=== PATIENT | female | born 1960 | race African-American/Black ===

== ENCOUNTER 2018-03-30 17:30 | Emergency (ER) | payer OTHER ==
--- NOTE | 2018-03-30 17:35 | PDOC ---
Rapid Medical Evaluation Chief Complaint: Injury Time Seen by Provider: 03/30/18 17:32 Medical Evaluation: Allergies Allergy/AdvReac Type Severity Reaction Status Date / Time No Known Allergies Allergy Verified 05/10/16 17:24 03/30/18 17:33 I have performed a brief in-person evaluation of this patient. The patient presents with a chief complaint of:R knee pain s/p fall today, unable to bear weight since. Denies any other injuries. Ambulates w/ walker, CVA , CHF, smoker Pertinent physical exam findings:ttp to diffuse R knee, no sig swelling, pain w / ROM I have ordered the following:xray The patient will proceed to the ED for further evaluation. 03/30/18 17:35 Discharge Disposition - Diagnosis Knee injury Qualifiers: Encounter type: initial encounter Laterality: right Qualified Code(s): S89.91XA - Unspecified injury of right lower leg, initial encounter - Referrals - Patient Instructions - Post Discharge Activity
[2018-03-30 17:36] VITALS: BP 119/79; PULSE 78; TEMP 98.8; BMI 45.2
--- NOTE | 2018-03-30 18:49 | PDOC ---
History of Present Illness - General Chief Complaint: Injury Stated Complaint: FALL INJURY Time Seen by Provider: 03/30/18 17:32 History Source: Patient, Family Exam Limitations: Clinical Condition - History of Present Illness Initial Comments: 03/30/18 18:52 Patient present with complains of right knee pains s/p falling whiles using walking and missing a step. pt report she fell on right knee and painful to ambulate. pt report previous fall on same knee few days ago. Denies hitting head Timing/Duration: 4-6 hours Severity: moderate Modifying Factors: improves with: rest. worse with: movement Associated Symptoms: denies: denies symptoms, malaise Aspirin Received prior to arrival: Yes: no aspirin today Beta Shaila Contraindications(Core Measure): Yes: Not Prescribed Past History - Past Medical History Allergies/Adverse Reactions: Allergies Allergy/AdvReac Type Severity Reaction Status Date / Time No Known Allergies Allergy Verified 05/10/16 17:24 Home Medications: Ambulatory Orders Aspirin [ASA -] 81 mg PO DAILY 10/13/15 Carvedilol [Coreg] 12.5 mg PO DAILY 10/13/15 Clopidogrel Bisulfate [Plavix -] 75 mg PO DAILY 10/13/15 Gabapentin 100 mg PO BID 10/13/15 Levetiracetam [Keppra] 1,000 mg PO BID 10/13/15 Metformin HCl 850 mg PO BID 10/13/15 Rosuvastatin Calcium [Crestor] 40 mg PO DAILY 10/13/15 Topiramate [Trokendi Xr] 100 mg PO BID 10/13/15 Duloxetine HCl 30 mg PO BID 01/26/16 Furosemide [Lasix -] 20 mg PO DAILY 01/26/16 Meloxicam 7.5 mg PO DAILY PRN 01/26/16 Sennosides/Docusate Sodium [Doc-Q-Lax Tablet] 1 each PO BID 01/26/16 Asthma: Yes CVA: Yes (3 tia) COPD: Yes Diabetes: Yes HTN: Yes Seizures: Yes Other medical history: chiarie malformation - Suicide/Smoking/Psychosocial Hx Smoking History: Never smoked Have you smoked in the past 12 months: No Number of Cigarettes Smoked Daily: 10 Information on smoking cessation initiated: No Hx Alcohol Use: No Drug/Substance Use Hx: No Substance Use Type: None Review of Systems - Review of Systems Is the patient limited Swiss proficient: No Constitutional: No: Weakness HEENTM: No: Symptoms Reported, Eye Pain, Blurred Vision, Tearing, Recent change in vision, Double Vision, Cataracts, Ear Pain, Ocular Prothesis, Ear Discharge, Nose Pain, Nose Congestion, Tinnitus, Nose Bleeding, Hearing Loss, Throat Pain, Throat Swelling, Mouth Pain, Dental Problems, Difficulty Swallowing, Mouth Swelling, Other Respiratory: No: Symptoms reported, Cough, Orthopnea, Shortness of Breath, SOB with Exertion, SOB at Rest, Stridor, Wheezing, Productive cough, Hemoptysis, Other Cardiac (ROS): No: Chest Pain, Lightheadedness ABD/GI: No: Symptoms Reported : No: Symptoms Reported Musculoskeletal: Yes: Joint Pain (right knee), Joint Swelling (right knee), Muscle Pain Neurological: No: Numbness, Dizziness Hematologic/Lymphatic: No: Easy Bruising *Physical Exam - Vital Signs Last Vital Signs Temp Pulse Resp BP Pulse Ox 98.8 F 78 18 119/79 96 03/30/18 17:33 03/30/18 17:33 03/30/18 17:33 03/30/18 17:33 03/30/18 17:33 - Physical Exam General Appearance: Yes: Nourished, Appropriately Dressed. No: Apparent Distress HEENT: positive: Normal ENT Inspection Neck: positive: Trachea midline, Normal Thyroid. negative: Tender Respiratory/Chest: positive: Lungs Clear. negative: Respiratory Distress Cardiovascular: positive: Regular Rhythm Gastrointestinal/Abdominal: positive: Normal Bowel Sounds. negative: Tender Musculoskeletal: positive: Normal Inspection, Other (moderate tenderness to lateral and medial collateral ligaments of right knee. no swelling to knee. pain worse with medial and lateral deviation of right lower leg) Neurologic: positive: Fully Oriented, Normal Mood/Affect Medical Decision Making - Medical Decision Making 03/30/18 18:55 Patient with right knee pains s/p fall. no evident of knee fracture or swellling on exam x-rays of right knee with no evident of fracture or dislocation. pt stable for discharge with PCP follow-up with knee brace and jayshree bandage to knee. rx NSAIDS for pain and swelling and RICE right LE *DC/Admit/Observation/Transfer Diagnosis at time of Disposition: Knee injury Qualifiers: Encounter type: initial encounter Laterality: right Qualified Code(s): S89.91XA - Unspecified injury of right lower leg, initial encounter Knee contusion Qualifiers: Encounter type: initial encounter Laterality: right Qualified Code(s): S80.01XA - Contusion of right knee, initial encounter Left knee sprain Qualifiers: Encounter type: initial encounter Involved ligament of knee: unspecified ligament Qualified Code(s): S83.92XA - Sprain of unspecified site of left knee, initial encounter - Discharge Dispostion Disposition: HOME Condition at time of disposition: Stable Decision to Admit order: No - Referrals Referrals: Annie Jensen MD [Primary Care Provider] - - Patient Instructions Printed Discharge Instructions: Knee Sprain, How to Use an Elastic Bandage- Knee Sprain Additional Instructions: Take home meloxicam as prescribed for knee pain. elevate right knee. use heat pad as directed on knee after today. follow-up with PCP - Post Discharge Activity
[2018-03-30] MEDS ORDERED: IBUPROFEN 400 MG TABLET (FP) PO ONE ×2 (19:06→19:07)
== END 2018-03-30 19:23 | disposition home or self-care (01) ==
LOC: JERFT 17:30
DX: S83.8X1A Sprain of other specified parts of right knee, initial encounter (principal); S80.01XA Contusion of right knee, initial encounter; W18.39XA Other fall on same level, initial encounter; Y93.89 Activity, other specified; Y92.89 Other specified places as the place of occurrence of the external cause; Y99.8 Other external cause status; Z99.89 Dependence on other enabling machines and devices; I10 Essential (primary) hypertension; E11.9 Type 2 diabetes mellitus without complications; Z79.84 Long term (current) use of oral hypoglycemic drugs; G40.909 Epilepsy, unspecified, not intractable, without status epilepticus; J45.909 Unspecified asthma, uncomplicated; Z86.73 Personal history of transient ischemic attack (TIA), and cerebral infarction without residual deficits
CPT/HCPCS: 73562-TC-RT-FY; 99282-25

== ENCOUNTER 2018-10-30 03:14 | Inpatient (IN) | payer OTHER ==
[2018-10-30] MEDS ORDERED: SODIUM CHLORIDE 0.9% 1000 ML INFUS.BAG IV ONE (03:26)
--- NOTE | 2018-10-30 03:37 | PDOC ---
History of Present Illness - General Stated Complaint: SEIZURE Time Seen by Provider: 10/30/18 03:25 History Source: Patient Exam Limitations: No Limitations, Clinical Condition - History of Present Illness Initial Comments: 55 yo F w a pmh of Seizure disorder, CHF, COPD, stroke with residual left sided weakness presents to the ER BIBEMS because she was having a seizure despite taking her topiramate and keppra. EMS gave her 5 mg of versed which abated her seizure. She admits to experiencing a seizure every day for around 15 minutes for the past month. She endorses significant difficulty with speaking after she has seizures. She states her seizures were well under control up until a month ago and then she began to have at least one seizure a day. She denies chest pain and dizziness. She denies fever, chills, nausea, vomit, diarrhea and constipation. She denies dysuria, frequency, urgency and hematuria. Social history: Denies tobacco, alcohol, and recreational drug use. PCP - Dr. Farrell Allergies: NKA, PRECIOUS Past History - Past Medical History Allergies/Adverse Reactions: Allergies Allergy/AdvReac Type Severity Reaction Status Date / Time No Known Allergies Allergy Verified 05/10/16 17:24 Home Medications: Ambulatory Orders Aspirin [ASA -] 81 mg PO DAILY 10/13/15 Carvedilol [Coreg] 12.5 mg PO DAILY 10/13/15 Clopidogrel Bisulfate [Plavix -] 75 mg PO DAILY 10/13/15 Gabapentin 100 mg PO BID 10/13/15 Levetiracetam [Keppra] 1,000 mg PO BID 10/13/15 Rosuvastatin Calcium [Crestor] 40 mg PO DAILY 10/13/15 Topiramate [Trokendi Xr] 100 mg PO BID 10/13/15 metFORMIN HCL [Metformin HCl] 850 mg PO BID 10/13/15 Duloxetine HCl 30 mg PO BID 01/26/16 Furosemide [Lasix -] 20 mg PO DAILY 01/26/16 Meloxicam 7.5 mg PO DAILY PRN 01/26/16 Sennosides/Docusate Sodium [Doc-Q-Lax Tablet] 1 each PO BID 01/26/16 Asthma: Yes CVA: Yes (3 tia) COPD: Yes Diabetes: Yes HTN: Yes Seizures: Yes - Suicide/Smoking/Psychosocial Hx Smoking History: Never smoked Have you smoked in the past 12 months: No Number of Cigarettes Smoked Daily: 10 Information on smoking cessation initiated: No Hx Alcohol Use: No Drug/Substance Use Hx: No Substance Use Type: None Review of Systems - Review of Systems Able to Perform ROS?: Yes Comments:: CONSTITUTIONAL: Present: Fatigue Absent: fever, no chills EYES: Absent: visual changes ENT: Absent: ear pain, no sore throat CARDIOVASCULAR: Absent: chest pain, no palpitations RESPIRATORY: Absent: cough, no SOB GI: Absent: abdominal pain, no nausea, no vomiting, no constipation, no diarrhea GENITOURINARY: Absent: dysuria, no frequency, no hematuria MUSKULOSKELETAL: Present: Arthralgia Absent: back pain, no myalgia SKIN: Absent: rash NEURO: Present: Seizures Absent: headache *Physical Exam - Vital Signs Last Vital Signs Temp Pulse Resp BP Pulse Ox 97.4 F L 83 16 96/54 L 94 L 10/30/18 03:30 10/30/18 03:30 10/30/18 03:30 10/30/18 03:30 10/30/18 03:30 - Physical Exam Comments: GENERAL: Somnolent, lethargic. Well-appearing, well-nourished. No apparent distress. HEENT: Normocephalic, atraumatic. PERRL, EOM intact. CARDIOVASCULAR: Normal S1, S2. Regular rate and rhythm. PULMONARY: No evidence of respiratory distress. Lungs clear to auscultation bilaterally. No wheezing, rales or rhonchi. ABDOMEN: Soft, non-distended, non-tender. EXTREMITIES: Normal ROM in all four extremities. No gross deformities. SKIN: Warm, dry. No rash Neurologic: positive: yarn wrapper II-XII NML intact, Fully Oriented, Alert, Normal Mood/ Affect, Normal Response, Motor Strength 5/5, Respond to painful stimul, Responsive. negative: Facial Droop, Numbness Moderate Sedation - Procedure Monitoring Vital Signs: Procedure Monitoring Vital Signs Temperature 97.4 F L 10/30/18 03:30 Pulse Rate 83 10/30/18 03:30 Respiratory Rate 16 10/30/18 03:30 Blood Pressure 96/54 L 10/30/18 03:30 O2 Sat by Pulse Oximetry (%) 94 L 10/30/18 03:30 ED Treatment Course - LABORATORY CBC & Chemistry Diagram: 10/30/18 04:48 10/30/18 05:54 Medical Decision Making - Medical Decision Making 55 yo F w a pmh of Seizure disorder, CHF, COPD, stroke with residual left sided weakness presents to the ER BIBEMS because she was having a seizure despite taking her topiramate and keppra. EMS gave her 5 mg of versed which abated her seizure. She admits to experiencing a seizure every day for around 15 minutes for the past month. She endorses significant difficulty with speaking after she has seizures. She states her seizures were well under control up until a month ago and then she began to have at least one seizure a day. DDx IBNLT: Status epilepticus, seizure, Sepsis, CVA/TIA, encephalitis, meningitis Plan: Labs, Urine, Xr, CT, EKG, Re-assess. Patient stopped seizing after receiving midazolam. She is protecting her airway. CT shows b/l proptosis but is negative for acute pathology. Will admit patient for refractory seizures. *DC/Admit/Observation/Transfer Diagnosis at time of Disposition: Refractory tonic seizures - Discharge Dispostion Condition at time of disposition: Guarded Decision to Admit order: Yes - Referrals Referrals: Annie Jensen MD [Primary Care Provider] - - Patient Instructions - Post Discharge Activity
--- NOTE | 2018-10-30 04:20 | PDOC ---
Attending Attestation - Resident Resident Name: Umer Hernandez - ED Attending Attestation I have performed the following: I have examined & evaluated the patient, The case was reviewed & discussed with the resident, I agree w/resident's findings & plan, Exceptions are as noted - HPI HPI: 10/30/18 04:16 58 yo F with h/o chf htn seizure disorder, prior cva here today with seizures. per pt boyfriend she used to have seizures every other day, and sometimes mult a day, but then was well controlled on keppra for a few months, recently she started having frequent seizure , today she had 3 or 4. last was witness by her boyfriend who noted tonic clonic shaking for 45 sec. on ems arrival pt had another, was given versed. pt denies f/c no n/v no trauma. has been taking meds. - Physicial Exam PE: 10/30/18 04:18 awake alert but intermittently confused. lungs clear bilaterally heart rrr no mrg abd soft nt nd. ext wwp no edema. nupam speaking drowsy. - Medical Decision Making 10/30/18 04:20 differential breakthrough seizures. noncompliance. subtherapuetic levels, infection such as uti pna or flu, plan labs ekg cxr [facility]k [facility] [place] consult.
[2018-10-30 05:13] LABS: BASO % 1.3 % (0-2.0); EOS % 1.5 % (0-4.5); HEMATOCRIT 36.5 % (32.4-45.2); LYMPH % 32.7 % (8-40); MCH 31.1 pg (25.7-33.7); MCHC 32.9 g/dl (32.0-36.0); MEAN CELL VOLUME 94.7 fl (80-96); MEAN PLT VOLUME 8.8 fl (7.5-11.1); NEUT % 57.5 % (42.8-82.8); PLATELET COUNT 110 K/MM3 (134-434); RBC 3.86 M/mm3 (3.60-5.2); RDW 14.5 % (11.6-15.6); WHITE BLOOD COUNT 5.7 K/mm3 (4.0-10.0)
[2018-10-30 05:14] LABS: INR 1.01 (0.83-1.09); PROTHROMBIN TIME (PATIENT) 11.9 SEC (9.7-13.0)
[2018-10-30 06:19] LABS: ALK PHOS 70 U/L (45-117); ANION GAP 6 MMOL/L (8-16); BILIRUBIN,TOTAL 0.2 mg/dL (0.2-1); BLOOD UREA NITROGEN 12 mg/dL (7-18); CALCIUM 8.7 mg/dL (8.5-10.1); CHLORIDE 108 mmol/L (98-107); CO2 27 mmol/L (21-32); CREATININE 0.7 mg/dL (0.55-1.3); GLUCOSE,RANDOM 98 mg/dL (74-106); POTASSIUM 3.9 mmol/L (3.5-5.1); SGOT/AST 19 U/L (15-37); SGPT/ALT 24 U/L (13-61); SODIUM 141 mmol/L (136-145); TOT PROT 7.2 g/dl (6.4-8.2)
[2018-10-30] MEDS ORDERED: levETIRAcetam 500 MG/5 ML INJECTION VIAL IVPB ONE ×3 (07:04→13:56)
--- NOTE | 2018-10-30 07:29 | HP ---
CHIEF COMPLAINT: seizures PCP: Annie Jensen MD HISTORY OF PRESENT ILLNESS: Patient is a 58 year old female with a past medical history of seizure disorder , chiari malformation type 1, CHF, COPD and CVA with left sided weakness. She comes to the ED via EMS after having seizure activity at home. In route to the hospital, she was given versed 5mg which stopped her seizure activity. Patient reports two seizures at home yesterday and has had one daily that lasts as long as 15 minutes for the past month. She denies any falls or trauma, denies any recent illnesses. She states that she sleeps for a prolonged time after each seizure and has difficulty speaking. On exam, she is sleepy, but arousable, her speech is garbled and her mucous membranes are very dry. She has facial symmetry and no other neurological deficits noted at this time. She can answer questions appropriately but falls back to sleep easily. As per patient she has been having seizures almost daily for the past 2 months. She denies chest pain and dizziness. She denies fever, chills, nausea, vomit, diarrhea and constipation. She denies dysuria, frequency, urgency and hematuria. Having some right knee pain, but denies falls. ER course was notable for: (1) keppra loading dose x 1 (2) head ct negative (3) brain mri 06/06/18 reviewed, consistent with chiari malformation type 1 w/o mass Recent Travel: PAST MEDICAL HISTORY: PAST SURGICAL HISTORY: Social History: Smoking: denies Alcohol: denies Drugs: denies Family History: Allergies No Known Allergies Allergy (Verified 05/10/16 17:24) HOME MEDICATIONS: Home Medications Medication Instructions Recorded Aspirin [ASA -] 81 mg PO DAILY 10/13/15 Carvedilol [Coreg] 12.5 mg PO DAILY 10/13/15 Clopidogrel Bisulfate [Plavix -] 75 mg PO DAILY 10/13/15 Gabapentin 100 mg PO BID 10/13/15 Levetiracetam [Keppra] 1,000 mg PO BID 10/13/15 Rosuvastatin Calcium [Crestor] 40 mg PO DAILY 10/13/15 Topiramate [Trokendi Xr] 100 mg PO BID 10/13/15 metFORMIN HCL [Metformin HCl] 850 mg PO BID 10/13/15 Duloxetine HCl 30 mg PO BID 01/26/16 Furosemide [Lasix -] 20 mg PO DAILY 01/26/16 Meloxicam 7.5 mg PO DAILY PRN 01/26/16 Sennosides/Docusate Sodium 1 each PO BID 01/26/16 [Doc-Q-Lax Tablet] PHYSICAL EXAMINATION Vital Signs - 24 hr 10/30/18 10/30/18 10/30/18 03:30 04:37 06:04 Temperature 97.4 F L Pulse Rate 83 Pulse Rate [ 78 75 Apical] Respiratory 16 22 H 16 Rate Blood Pressure 96/54 L Blood Pressure 109/62 111/62 [Left Arm] O2 Sat by Pulse 94 L 98 99 Oximetry (%) GENERAL:lethargic, arousable, can answer questions appropriately, garbled speech , falls back to sleep easily HEAD: Normal with no signs of trauma. dry mucous membranes EYES: Pupils equal, round and reactive to light, extraocular movements intact EARS, NOSE, THROAT: Ears normal, nares patent, oropharynx clear without exudates. Moist mucous membranes. NECK: Normal range of motion, supple without lymphadenopathy, JVD, or masses. LUNGS: congestion noted on anterior lungs HEART: Regular rate and rhythm ABDOMEN: Soft, nontender, not distended, normoactive bowel sounds, no guarding, no rebound, no masses. No hepatomegaly or splenomegaly. MUSCULOSKELETAL: Normal range of motion at all joints. No bony deformities or tenderness. No CVA tenderness. UPPER EXTREMITIES: No peripheral edema. LOWER EXTREMITIES: No peripheral edema. NEUROLOGICAL: garbled speech, gait not obsered PSYCHIATRIC: Cooperative. SKIN: dry Laboratory Results - last 24 hr 10/30/18 10/30/18 10/30/18 04:33 04:33 04:33 WBC RBC Hgb Hct MCV MCH MCHC RDW Plt Count MPV Absolute Neuts (auto) Neutrophils % Lymphocytes % Monocytes % Eosinophils % Basophils % Nucleated RBC % PT with INR 11.90 INR 1.01 PTT (Actin FS) 23.3 L Sodium Potassium Chloride Carbon Dioxide Anion Gap BUN Creatinine Creat Clearance w eGFR Random Glucose Lactic Acid Calcium Total Bilirubin AST ALT Alkaline Phosphatase Creatine Kinase Troponin I Total Protein Albumin Blood Type O NEGATIVE Antibody Screen Negative 10/30/18 10/30/18 10/30/18 04:48 04:48 04:48 WBC 5.7 RBC 3.86 Hgb 12.0 Hct 36.5 MCV 94.7 MCH 31.1 MCHC 32.9 RDW 14.5 Plt Count 110 L D MPV 8.8 D Absolute Neuts (auto) 3.3 Neutrophils % 57.5 Lymphocytes % 32.7 Monocytes % 7.0 Eosinophils % 1.5 Basophils % 1.3 Nucleated RBC % 0 PT with INR INR PTT (Actin FS) Sodium Potassium Chloride Carbon Dioxide Anion Gap BUN Creatinine Creat Clearance w eGFR Random Glucose Lactic Acid 1.1 Calcium Total Bilirubin AST ALT Alkaline Phosphatase Creatine Kinase 88 Troponin I < 0.02 Total Protein Albumin Blood Type Antibody Screen 10/30/18 05:54 WBC RBC Hgb Hct MCV MCH MCHC RDW Plt Count MPV Absolute Neuts (auto) Neutrophils % Lymphocytes % Monocytes % Eosinophils % Basophils % Nucleated RBC % PT with INR INR PTT (Actin FS) Sodium 141 Potassium 3.9 Chloride 108 H Carbon Dioxide 27 Anion Gap 6 L BUN 12 Creatinine 0.7 Creat Clearance w eGFR > 60 Random Glucose 98 Lactic Acid Calcium 8.7 Total Bilirubin 0.2 AST 19 ALT 24 Alkaline Phosphatase 70 Creatine Kinase 89 Troponin I Total Protein 7.2 Albumin 4.0 Blood Type Antibody Screen ASSESSMENT/PLAN: Patient is a 58 year old female with a past medical history of seizure disorder , chiari malformation type 1, CHF, COPD and CVA with left sided weakness. She comes to the ED via EMS after having seizure activity at home. In route to the hospital, she was given versed 5mg which stopped her seizure activity. Patient reports two seizures at home yesterday and has had one daily that lasts as long as 15 minutes for the past month. She denies any falls or trauma, denies any recent illnesses. She states that she sleeps for a prolonged time after each seizure and has difficulty speaking. Neuro: Epilepsy Head CT negative for acute process brain mri 06/06/18 reviewed, consistent with chiari malformation type 1 w/o mass Given Keppra 1000mg loading dose. Start on Keppra 1000mg BID IV Start on ativan 1mg prn for breakthrough seizures Keppra levels ordered Drug screen ordered Seizure precautions Neuro consulted Will order brain MRI Diabetes: start novolog, bgms CHF: on lasix, will hydrate and hold lasix CVA: left sided weakness: PT evaluation Thrombocytopenia: platelets 110, monitor fen Hydrate with NS @ 50cc/hr Monitor electrolytes diabetic diet prophy heparin tid full code. Patient poor historian on her medications and was sleepy on exam, she was not clear if she takes gabapentin or lasix at home. will need to be reconciled. Visit type - Emergency Visit Emergency Visit: Yes ED Registration Date: 10/30/18 Care time: The patient presented to the Emergency Department on the above date and was hospitalized for further evaluation of their emergent condition. - New Patient This patient is new to me today: Yes Date on this admission: 10/30/18 - Critical Care Critical Care patient: No
[2018-10-30] MEDS ORDERED: SODIUM CHLORIDE 1,000 ML IV SCH (08:15)
[2018-10-30] MEDS ORDERED: LORazepam 2 MG/ML SDV VIAL IVPUSH PRN (08:20)
[2018-10-30] MEDS ORDERED: CARVEDILOL 12.5 MG TABLET (FP) ONE (09:42)
[2018-10-30] MEDS ORDERED: ASPIRIN 81 MG CHEWABLE TABLETS ONE (09:42)
[2018-10-30] MEDS ORDERED: GABAPENTIN 100 MG CAPSULE (FP) ONE (09:43)
[2018-10-30] MEDS ORDERED: CLOPIDOGREL BISULFATE 75 MG TABLET (FP) ONE (09:43)
[2018-10-30] MEDS ORDERED: DULoxetine HCL 30 MG CAPSULE.DR (FP) PO ONE (09:43)
[2018-10-30] MEDS: CARVEDILOL 12.5 MG TABLET (FP) PO SCH ×2 (09:44→21:59)
[2018-10-30] MEDS: DULoxetine HCL 30 MG CAPSULE.DR (FP) PO SCH ×2 (09:44→21:59)
[2018-10-30] MEDS: ASPIRIN 81 MG CHEWABLE TABLETS PO SCH (09:44)
[2018-10-30] MEDS: CLOPIDOGREL BISULFATE 75 MG TABLET (FP) PO SCH (09:44)
[2018-10-30] MEDS ORDERED: CARVEDILOL 12.5 MG TABLET (FP) PO SCH (10:00)
[2018-10-30] MEDS ORDERED: GABAPENTIN 100 MG CAPSULE (FP) PO SCH (10:00)
[2018-10-30] MEDS ORDERED: PATIENT'S OWN MEDICATION (NON-FORMULARY) (Topiramate [Trokendi Xr] 100 MG) PO SCH (10:00)
[2018-10-30] MEDS ORDERED: FUROSEMIDE 20 MG TABLET (FP) PO SCH (10:00)
[2018-10-30] MEDS: INSULIN SLIDING SCALE (NOVOLOG) 1 VIAL SQ SCH ×3 (11:13→22:10)
[2018-10-30] MEDS: levETIRAcetam 500 MG/5 ML INJECTION VIAL IVPB ONE ×2 (13:54→13:55)
[2018-10-30] MEDS ORDERED: HEPARIN NA (PORCINE) 5,000 UNITS/ML 1ML VIAL ONE (13:55)
[2018-10-30] MEDS: HEPARIN NA (PORCINE) 5,000 UNITS/ML 1ML VIAL SQ SCH ×2 (14:09→22:00)
--- NOTE | 2018-10-30 15:05 | EKG ---
Test Reason : Blood Pressure : / mmHG Vent. Rate : 073 BPM Atrial Rate : 073 BPM P-R Int : 150 ms QRS Dur : 090 ms QT Int : 420 ms P-R-T Axes : 063 041 033 degrees QTc Int : 462 ms NORMAL SINUS RHYTHM RSR' OR QR PATTERN IN V1 SUGGESTS RIGHT VENTRICULAR CONDUCTION DELAY BORDERLINE ECG WHEN COMPARED WITH ECG OF 10-MAY-2016 18:15, NO SIGNIFICANT CHANGE WAS FOUND Confirmed by Guillaume Hussein MD ([id number]) on 10/30/2018 3:04:59 PM Referred By: Confirmed By:Guillaume Hussein MD
[2018-10-30 15:40] LABS: COCAINE, UR NEGATIVE ng/ml (CUTOFF=300); METHADONE, UR NEGATIVE ng/ml (CUTOFF=300); OPIATES, URI NEGATIVE ng/ml (CUTOFF=300); PHENCYCLIDINE,URINE NEGATIVE ng/ml (CUTOFF=25); URINE AMPHETAMINES NEGATIVE ng/ml (CUTOFF=500); URINE BARBITURATES NEGATIVE ng/ml (CUTOFF=200)
[2018-10-30 15:42] LABS: URINE APPEARANCE CLEAR; URINE BILIRUBIN NEGATIVE (<2.0 mg/dL); URINE COLOR STRAW; URINE GLUCOSE (UA) NEGATIVE (NEGATIVE); URINE KETONE NEGATIVE (NEGATIVE); URINE LEUK ESTERASE NEGATIVE (NEGATIVE); URINE NITRITE NEGATIVE (NEGATIVE); URINE PROTEIN NEGATIVE (NEGATIVE); URINE UROBILINOGEN NEGATIVE mg/dL (0.2-1.0)
[2018-10-30 15:43] LABS: URINE BENZODIAZEPINES POSITIVE ng/ml (CUTOFF=200)
[2018-10-30 16:33] LABS: ALBUMIN 3.6 g/dl (3.4-5.0); ALK PHOS 62 U/L (45-117); ANION GAP 9 MMOL/L (8-16); BILIRUBIN,TOTAL 0.2 mg/dL (0.2-1); BLOOD UREA NITROGEN 9 mg/dL (7-18); CALCIUM 8.4 mg/dL (8.5-10.1); CHLORIDE 116 mmol/L (98-107); CHOLESTEROL 164 mg/dL (50-200); CO2 22 mmol/L (21-32); CREATININE 0.6 mg/dL (0.55-1.3); GLUCOSE,RANDOM 104 mg/dL (74-106); HDL CHOLESTEROL 50 mg/dL (40-60); MAGNESIUM 1.9 mg/dL (1.8-2.4); SGOT/AST 15 U/L (15-37); SGPT/ALT 23 U/L (13-61); SODIUM 147 mmol/L (136-145); TOT PROT 6.7 g/dl (6.4-8.2); TRIGLYCERIDES 137 mg/dL (0-150)
--- NOTE | 2018-10-30 16:50 | CON.NEURO ---
Consult - Alcohol/Substance Use Hx Alcohol Use: No - Smoking History Smoking history: Never smoked Have you smoked in the past 12 months: No Aproximately how many cigarettes per day: 10 Home Medications - Allergies Allergies/Adverse Reactions: Allergies Allergy/AdvReac Type Severity Reaction Status Date / Time No Known Allergies Allergy Verified 05/10/16 17:24 - Home Medications Home Medications: Ambulatory Orders Aspirin [ASA -] 81 mg PO DAILY 10/13/15 Carvedilol [Coreg] 12.5 mg PO DAILY 10/13/15 Clopidogrel Bisulfate [Plavix -] 75 mg PO DAILY 10/13/15 Gabapentin 100 mg PO BID 10/13/15 Levetiracetam [Keppra] 1,000 mg PO BID 10/13/15 Rosuvastatin Calcium [Crestor] 40 mg PO DAILY 10/13/15 Topiramate [Trokendi Xr] 100 mg PO BID 10/13/15 metFORMIN HCL [Metformin HCl] 850 mg PO BID 10/13/15 Duloxetine HCl 30 mg PO BID 01/26/16 Furosemide [Lasix -] 20 mg PO DAILY 01/26/16 Meloxicam 7.5 mg PO DAILY PRN 01/26/16 Sennosides/Docusate Sodium [Doc-Q-Lax Tablet] 1 each PO BID 01/26/16 Physical Exam-Neuro Vital Signs: Vital Signs Temperature 98.2 F 10/30/18 14:00 Pulse Rate 71 10/30/18 14:00 Respiratory Rate 16 10/30/18 14:00 Blood Pressure 92/59 L 10/30/18 14:00 O2 Sat by Pulse Oximetry (%) 97 10/30/18 08:03 Labs: CBC, BMP 10/30/18 04:48 10/30/18 15:11 INR, PTT INR 1.01 (0.83-1.09) 10/30/18 04:33 Assessment/Plan CC Breakthrough seizure HPI 58 year old male history of epilepsy, Chiari Malformation type 1, CHF, COPD , Stroke with left residual weaknes.s Patient do take keppra 2 gm po bid, topmax 200 mg po bid and neurontin 100 mg po bid. Patient has been having seizure every other day. She describes as shaking, no LOC, she do not bite her tongue, as she has no teeth. She denies any incontinence. patient denies any flu , fever, trauma, any new focal neurological symptoms. She denies she forgetting medication. Patient was sleepy on arrival and had ct scan of brain and mri of brain done and it was unremarkable. PMH as above. PAST SURGICAL HISTORY: Social History: Smoking: denies Alcohol: denies Drugs: denies NKDA HOME MEDICATIONS: Home Medications Medication Instructions Recorded Aspirin [ASA -] 81 mg PO DAILY 10/13/15 Carvedilol [Coreg] 12.5 mg PO DAILY 10/13/15 Clopidogrel Bisulfate [Plavix -] 75 mg PO DAILY 10/13/15 Gabapentin 100 mg PO BID 10/13/15 Levetiracetam [Keppra] 2,000 mg PO BID 10/13/15 Rosuvastatin Calcium [Crestor] 40 mg PO DAILY 10/13/15 Topiramate [Trokendi Xr] 2 00 mg PO BID 10/13/15 metFORMIN HCL [Metformin HCl] 850 mg PO BID 10/13/15 Duloxetine HCl 30 mg PO BID 01/26/16 Furosemide [Lasix -] 20 mg PO DAILY 01/26/16 Meloxicam 7.5 mg PO DAILY PRN 01/26/16 Sennosides/Docusate Sodium 1 each PO BID 01/26/16 [Doc-Q-Lax Tablet] ROS,FH reviewed in chart NEUROLOGICAL EXAMINATION Alert oriented x 3, speech is normal, and no neck stiffness Left face asymmetry, eomi, pupils reactive Left sided mild hemiparesis CT head : no acute distress MRI no acute stroke identified, and there is Chiari malformation identified Assessment: Breakthrough seizure, not clear if she has been compliant with medication. Patient was post ictal on arrival and now seems to be back to baseline. Her mri of brain and ct head was unremarkable. Plan: resume home medication including keppra 2 gm po bid and topamax 200 mg po bid - increase gabapentin 300 mg po bid - seizure precautions were discussed -EEG and would continue to follow up with patient Thanking you so much Waldemar Ansari MD
[2018-10-30] MEDS: levETIRAcetam 500 MG TABLET (FP) PO SCH (21:59)
[2018-10-30] MEDS: GABAPENTIN 300 MG CAPSULE (FP) PO SCH (21:59)
[2018-10-30] MEDS ORDERED: levETIRAcetam 500 MG/5 ML INJECTION VIAL IVPB SCH (22:00)
[2018-10-30] MEDS ORDERED: ROSUVASTATIN CA 40 MG TABLET PO SCH (22:00)
[2018-10-30] MEDS ORDERED: ROSUVASTATIN CA 20 MG TABLET (FP) PO SCH (22:00)
[2018-10-30 22:31] VITALS: BMI 49.5
[2018-10-30] MEDS: TOPIRAMATE 100 MG TABLET PO SCH (22:50)
[2018-10-31] MEDS: HEPARIN NA (PORCINE) 5,000 UNITS/ML 1ML VIAL SQ SCH ×2 (06:08→13:59)
[2018-10-31] MEDS: INSULIN SLIDING SCALE (NOVOLOG) 1 VIAL SQ SCH ×2 (06:25→12:35)
[2018-10-31 08:08] LABS: EOS % 1.1 % (0-4.5); HEMATOCRIT 34.7 % (32.4-45.2); HEMOGLOBIN 11.4 GM/dL (10.7-15.3); LYMPH % 28.4 % (8-40); MCH 31.2 pg (25.7-33.7); MCHC 32.8 g/dl (32.0-36.0); MEAN CELL VOLUME 95.1 fl (80-96); MEAN PLT VOLUME 7.9 fl (7.5-11.1); MONO % 10.9 % (3.8-10.2); NEUT % 58.6 % (42.8-82.8); PLATELET COUNT 231 K/MM3 (134-434); RBC 3.65 M/mm3 (3.60-5.2); RDW 14.4 % (11.6-15.6); WHITE BLOOD COUNT 3.7 K/mm3 (4.0-10.0)
[2018-10-31 09:14] LABS: ANION GAP 7 MMOL/L (8-16); BLOOD UREA NITROGEN 9 mg/dL (7-18); CALCIUM 8.4 mg/dL (8.5-10.1); CHLORIDE 110 mmol/L (98-107); CO2 25 mmol/L (21-32); CREATININE 0.7 mg/dL (0.55-1.3); GLUCOSE,RANDOM 122 mg/dL (74-106); POTASSIUM 4.1 mmol/L (3.5-5.1); SODIUM 142 mmol/L (136-145)
[2018-10-31] MEDS: CLOPIDOGREL BISULFATE 75 MG TABLET (FP) PO SCH (09:23)
[2018-10-31] MEDS: ASPIRIN 81 MG CHEWABLE TABLETS PO SCH (09:23)
[2018-10-31] MEDS: DULoxetine HCL 30 MG CAPSULE.DR (FP) PO SCH (09:23)
[2018-10-31] MEDS: levETIRAcetam 500 MG TABLET (FP) PO SCH (09:23)
[2018-10-31] MEDS: CARVEDILOL 12.5 MG TABLET (FP) PO SCH (09:23)
[2018-10-31] MEDS: GABAPENTIN 300 MG CAPSULE (FP) PO SCH (09:23)
[2018-10-31] MEDS: TOPIRAMATE 100 MG TABLET PO SCH (09:24)
--- NOTE | 2018-10-31 15:18 | DS ---
Physical Exam: SUBJECTIVE: Patient seen and examined at the bedside. OBJECTIVE: no seizures overnight, feels well, in no acute distress. wants to go home. Vital Signs Period Temp Pulse Resp BP Sys/Farooq Pulse Ox Last 24 Hr 97.7 F-98.5 F 62-71 18-20 113-132/69-83 96-99 PHYSICAL EXAM GENERAL: awake alert, oriented to person place and time HEAD: Normal with no signs of trauma. dry mucous membranes EYES: Pupils equal, round and reactive to light, extraocular movements intact EARS, NOSE, THROAT: Ears normal, nares patent, oropharynx clear without exudates. Moist mucous membranes. NECK: Normal range of motion, supple without lymphadenopathy, JVD, or masses. LUNGS: clear lungs HEART: Regular rate and rhythm ABDOMEN: Soft, nontender, not distended, normoactive bowel sounds, no guarding, no rebound, no masses. No hepatomegaly or splenomegaly. MUSCULOSKELETAL: Normal range of motion at all joints. No bony deformities or tenderness. No CVA tenderness. UPPER EXTREMITIES: No peripheral edema. LOWER EXTREMITIES: No peripheral edema. NEUROLOGICAL: clear speech PSYCHIATRIC: Cooperative. SKIN: dry LABS Laboratory Results - last 24 hr 10/30/18 10/30/18 10/30/18 13:15 14:10 15:00 WBC RBC Hgb Hct MCV MCH MCHC RDW Plt Count MPV Absolute Neuts (auto) Neutrophils % Lymphocytes % Monocytes % Eosinophils % Basophils % Nucleated RBC % Sodium 147 H Potassium 4.0 Chloride 116 H Carbon Dioxide 22 Anion Gap 9 BUN 9 Creatinine 0.6 Creat Clearance w eGFR > 60 POC Glucometer Random Glucose 104 Hemoglobin A1c % 6.8 H Specific [place] Calcium 8.4 L Magnesium 1.9 Total Bilirubin 0.2 AST 15 ALT 23 Alkaline Phosphatase 62 Ammonia Troponin I < 0.02 Total Protein 6.7 Albumin 3.6 Triglycerides 137 Cholesterol 164 Total LDL Cholesterol 91 HDL Cholesterol 50 Urine Color Urine Appearance Urine pH Ur Specific [place] Urine Protein Urine Glucose (UA) Urine Ketones Urine Blood Urine Nitrite Urine Bilirubin Urine Urobilinogen Ur Leukocyte Esterase Urine Butalbital Ur Butalbital Confirm Opiates Screen Negative Urine Opiates Screen Meperidine Urine Normeperidine U Normeperidine GC/MS Codeine Codeine Confirmation Urine Codeine U Codeine Confrm GC/MS Morphine Urine Morphine Morphine Confirm GC/MS Urine Hydrocodone Ur Hydrocodone (GC/MS) Urine Oxycodone Ur Oxycodone GC/MS Oxymorphone Confirm Urine Oxymorphone U Oxycodone/Oxymorphon Methadone Screen Negative Ur Methadone Ur Methadone Confirm Ur Hydromorphone Ur Hydromorphone (GC/MS) Urine Propoxyphene U Propoxyphene/M GC/MS Barbiturate Screen Negative Ur Barbiturates Screen Urine Barbiturates Phencyclidine Screen Negative Ur Phencyclidine (PCP) Ur PCP Confirm (GC/MS) Amphetamines Amphetamines Grp GC/MS Ur Amphetamines Screen Negative Urine Amphetamine Ur Amphetamines, Quant Methamphetamine Methamphetamine GC/MS MDMA (Ecstasy) Screen Negative Urine Amobarbital Ur Amobarbital GC/MS Urine Pentobarbital U Pentobarbital GC/MS Urine Phenobarbital U Phenobarbital GC/MS Urine Secobarbital U Secobarbital GC/MS Urine Alprazolam U OH-Alprazolam GC/MS Benzodiazepines Screen Positive A* U Benzodiazepines Scrn Urine Clonazepam U 7-Amino Clonazep GC/MS Ur Nordiazepam Ur Nordiazepam GC/MS Flurazepam Flurazepam Confirm Lorazepam Urine Lorazepam Ur Oxazepam U Oxazepam Confm GC/MS Urine Temazepam Ur Temazepam (GC/MS) Urine Triazolam Ur Triazolam (GC/MS) Meperidine (GC/MS) Ur Meperidine Cocaine Screen Negative Cocaine & Metabolite Urine Cocaine Benzoylecgonine Cannabinoids Urine Cannabinoids U Marijuana (THC) Screen Positive A* Urine Marijuana (THC) Drug Test Comment Alcohol, Quantitative Ethyl Alc Confirm 10/30/18 10/30/18 10/30/18 15:10 15:11 15:11 WBC RBC Hgb Hct MCV MCH MCHC RDW Plt Count MPV Absolute Neuts (auto) Neutrophils % Lymphocytes % Monocytes % Eosinophils % Basophils % Nucleated RBC % Sodium Potassium Chloride Carbon Dioxide Anion Gap BUN Creatinine Cancelled Creat Clearance w eGFR POC Glucometer Random Glucose Hemoglobin A1c % Specific [place] Cancelled Calcium Magnesium Total Bilirubin AST ALT Alkaline Phosphatase Ammonia Troponin I Total Protein Albumin Triglycerides Cholesterol Total LDL Cholesterol HDL Cholesterol Urine Color Straw Urine Appearance Clear Urine pH 7.0 Ur Specific [place] 1.012 Urine Protein Negative Urine Glucose (UA) Negative Urine Ketones Negative Urine Blood Negative Urine Nitrite Negative Urine Bilirubin Negative Urine Urobilinogen Negative Ur Leukocyte Esterase Negative Urine Butalbital Cancelled Ur Butalbital Confirm Cancelled Opiates Screen Cancelled Urine Opiates Screen Cancelled Meperidine Cancelled Urine Normeperidine Cancelled U Normeperidine GC/MS Cancelled Codeine Cancelled Codeine Confirmation Cancelled Urine Codeine Cancelled U Codeine Confrm GC/MS Cancelled Morphine Cancelled Urine Morphine Cancelled Morphine Confirm GC/MS Cancelled Cancelled Urine Hydrocodone Cancelled Cancelled Ur Hydrocodone (GC/MS) Cancelled Urine Oxycodone Cancelled Ur Oxycodone GC/MS Cancelled Oxymorphone Confirm Cancelled Urine Oxymorphone Cancelled U Oxycodone/Oxymorphon Cancelled Methadone Screen Ur Methadone Cancelled Ur Methadone Confirm Cancelled Ur Hydromorphone Cancelled Cancelled Ur Hydromorphone (GC/MS) Cancelled Urine Propoxyphene Cancelled U Propoxyphene/M GC/MS Cancelled Barbiturate Screen Ur Barbiturates Screen Cancelled Urine Barbiturates Cancelled Phencyclidine Screen Ur Phencyclidine (PCP) Cancelled Ur PCP Confirm (GC/MS) Cancelled Amphetamines Cancelled Amphetamines Grp GC/MS Cancelled Ur Amphetamines Screen Urine Amphetamine Cancelled Ur Amphetamines, Quant Cancelled Methamphetamine Cancelled Methamphetamine GC/MS Cancelled MDMA (Ecstasy) Screen Urine Amobarbital Cancelled Ur Amobarbital GC/MS Cancelled Urine Pentobarbital Cancelled U Pentobarbital GC/MS Cancelled Urine Phenobarbital Cancelled U Phenobarbital GC/MS Cancelled Urine Secobarbital Cancelled U Secobarbital GC/MS Cancelled Urine Alprazolam Cancelled U OH-Alprazolam GC/MS Cancelled Benzodiazepines Screen U Benzodiazepines Scrn Cancelled Urine Clonazepam Cancelled U 7-Amino Clonazep GC/MS Cancelled Ur Nordiazepam Cancelled Ur Nordiazepam GC/MS Cancelled Flurazepam Cancelled Flurazepam Confirm Cancelled Lorazepam Cancelled Urine Lorazepam Cancelled Ur Oxazepam Cancelled U Oxazepam Confm GC/MS Cancelled Urine Temazepam Cancelled Ur Temazepam (GC/MS) Cancelled Urine Triazolam Cancelled Ur Triazolam (GC/MS) Cancelled Meperidine (GC/MS) Cancelled Ur Meperidine Cancelled Cocaine Screen Cocaine & Metabolite Cancelled Urine Cocaine Cancelled Benzoylecgonine Cancelled Cannabinoids Cancelled Urine Cannabinoids Cancelled U Marijuana (THC) Screen Urine Marijuana (THC) Cancelled Drug Test Comment Cancelled Alcohol, Quantitative Ethyl Alc Confirm Cancelled 10/30/18 10/30/18 10/30/18 16:43 21:00 22:10 WBC RBC Hgb Hct MCV MCH MCHC RDW Plt Count MPV Absolute Neuts (auto) Neutrophils % Lymphocytes % Monocytes % Eosinophils % Basophils % Nucleated RBC % Sodium Potassium Chloride Carbon Dioxide Anion Gap BUN Creatinine Creat Clearance w eGFR POC Glucometer 122 122 Random Glucose Hemoglobin A1c % Specific [place] Calcium Magnesium Total Bilirubin AST ALT Alkaline Phosphatase Ammonia Troponin I < 0.02 Total Protein Albumin Triglycerides Cholesterol Total LDL Cholesterol HDL Cholesterol Urine Color Urine Appearance Urine pH Ur Specific [place] Urine Protein Urine Glucose (UA) Urine Ketones Urine Blood Urine Nitrite Urine Bilirubin Urine Urobilinogen Ur Leukocyte Esterase Urine Butalbital Ur Butalbital Confirm Opiates Screen Urine Opiates Screen Meperidine Urine Normeperidine U Normeperidine GC/MS Codeine Codeine Confirmation Urine Codeine U Codeine Confrm GC/MS Morphine Urine Morphine Morphine Confirm GC/MS Urine Hydrocodone Ur Hydrocodone (GC/MS) Urine Oxycodone Ur Oxycodone GC/MS Oxymorphone Confirm Urine Oxymorphone U Oxycodone/Oxymorphon Methadone Screen Ur Methadone Ur Methadone Confirm Ur Hydromorphone Ur Hydromorphone (GC/MS) Urine Propoxyphene U Propoxyphene/M GC/MS Barbiturate Screen Ur Barbiturates Screen Urine Barbiturates Phencyclidine Screen Ur Phencyclidine (PCP) Ur PCP Confirm (GC/MS) Amphetamines Amphetamines Grp GC/MS Ur Amphetamines Screen Urine Amphetamine Ur Amphetamines, Quant Methamphetamine Methamphetamine GC/MS MDMA (Ecstasy) Screen Urine Amobarbital Ur Amobarbital GC/MS Urine Pentobarbital U Pentobarbital GC/MS Urine Phenobarbital U Phenobarbital GC/MS Urine Secobarbital U Secobarbital GC/MS Urine Alprazolam U OH-Alprazolam GC/MS Benzodiazepines Screen U Benzodiazepines Scrn Urine Clonazepam U 7-Amino Clonazep GC/MS Ur Nordiazepam Ur Nordiazepam GC/MS Flurazepam Flurazepam Confirm Lorazepam Urine Lorazepam Ur Oxazepam U Oxazepam Confm GC/MS Urine Temazepam Ur Temazepam (GC/MS) Urine Triazolam Ur Triazolam (GC/MS) Meperidine (GC/MS) Ur Meperidine Cocaine Screen Cocaine & Metabolite Urine Cocaine Benzoylecgonine Cannabinoids Urine Cannabinoids U Marijuana (THC) Screen Urine Marijuana (THC) Drug Test Comment Alcohol, Quantitative Ethyl Alc Confirm 10/31/18 10/31/18 10/31/18 06:23 07:20 07:20 WBC 3.7 L RBC 3.65 Hgb 11.4 Hct 34.7 MCV 95.1 MCH 31.2 MCHC 32.8 RDW 14.4 Plt Count 231 D MPV 7.9 D Absolute Neuts (auto) 2.2 Neutrophils % 58.6 Lymphocytes % 28.4 Monocytes % 10.9 H Eosinophils % 1.1 Basophils % 1.0 Nucleated RBC % 0 Sodium 142 Potassium 4.1 Chloride 110 H Carbon Dioxide 25 Anion Gap 7 L BUN 9 Creatinine 0.7 Creat Clearance w eGFR > 60 POC Glucometer 117 Random Glucose 122 H Hemoglobin A1c % Specific [place] Calcium 8.4 L Magnesium Total Bilirubin AST ALT Alkaline Phosphatase Ammonia Troponin I Total Protein Albumin Triglycerides Cholesterol Total LDL Cholesterol HDL Cholesterol Urine Color Urine Appearance Urine pH Ur Specific [place] Urine Protein Urine Glucose (UA) Urine Ketones Urine Blood Urine Nitrite Urine Bilirubin Urine Urobilinogen Ur Leukocyte Esterase Urine Butalbital Ur Butalbital Confirm Opiates Screen Urine Opiates Screen Meperidine Urine Normeperidine U Normeperidine GC/MS Codeine Codeine Confirmation Urine Codeine U Codeine Confrm GC/MS Morphine Urine Morphine Morphine Confirm GC/MS Urine Hydrocodone Ur Hydrocodone (GC/MS) Urine Oxycodone Ur Oxycodone GC/MS Oxymorphone Confirm Urine Oxymorphone U Oxycodone/Oxymorphon Methadone Screen Ur Methadone Ur Methadone Confirm Ur Hydromorphone Ur Hydromorphone (GC/MS) Urine Propoxyphene U Propoxyphene/M GC/MS Barbiturate Screen Ur Barbiturates Screen Urine Barbiturates Phencyclidine Screen Ur Phencyclidine (PCP) Ur PCP Confirm (GC/MS) Amphetamines Amphetamines Grp GC/MS Ur Amphetamines Screen Urine Amphetamine Ur Amphetamines, Quant Methamphetamine Methamphetamine GC/MS MDMA (Ecstasy) Screen Urine Amobarbital Ur Amobarbital GC/MS Urine Pentobarbital U Pentobarbital GC/MS Urine Phenobarbital U Phenobarbital GC/MS Urine Secobarbital U Secobarbital GC/MS Urine Alprazolam U [place]-Alprazolam GC/MS Benzodiazepines Screen U Benzodiazepines Scrn Urine Clonazepam U 7-Amino Clonazep GC/MS Ur Nordiazepam Ur Nordiazepam GC/MS Flurazepam Flurazepam Confirm Lorazepam Urine Lorazepam Ur Oxazepam U Oxazepam Confm GC/MS Urine Temazepam Ur Temazepam (GC/MS) Urine Triazolam Ur Triazolam (GC/MS) Meperidine (GC/MS) Ur Meperidine Cocaine Screen Cocaine & Metabolite Urine Cocaine Benzoylecgonine Cannabinoids Urine Cannabinoids U Marijuana (THC) Screen Urine Marijuana (THC) Drug Test Comment Alcohol, Quantitative Ethyl Alc Confirm 10/31/18 10/31/18 10/31/18 11:43 12:10 12:10 WBC RBC Hgb Hct MCV MCH MCHC RDW Plt Count MPV Absolute Neuts (auto) Neutrophils % Lymphocytes % Monocytes % Eosinophils % Basophils % Nucleated RBC % Sodium Potassium Chloride Carbon Dioxide Anion Gap BUN Creatinine Creat Clearance w eGFR POC Glucometer 116 Random Glucose Hemoglobin A1c % Specific [place] Calcium Magnesium Total Bilirubin AST ALT Alkaline Phosphatase Ammonia 56.30 H Troponin I Total Protein Albumin Triglycerides Cholesterol Total LDL Cholesterol HDL Cholesterol Urine Color Urine Appearance Urine pH Ur Specific [place] Urine Protein Urine Glucose (UA) Urine Ketones Urine Blood Urine Nitrite Urine Bilirubin Urine Urobilinogen Ur Leukocyte Esterase Urine Butalbital Ur Butalbital Confirm Opiates Screen Urine Opiates Screen Meperidine Urine Normeperidine U Normeperidine GC/MS Codeine Codeine Confirmation Urine Codeine U Codeine Confrm GC/MS Morphine Urine Morphine Morphine Confirm GC/MS Urine Hydrocodone Ur Hydrocodone (GC/MS) Urine Oxycodone Ur Oxycodone GC/MS Oxymorphone Confirm Urine Oxymorphone U Oxycodone/Oxymorphon Methadone Screen Ur Methadone Ur Methadone Confirm Ur Hydromorphone Ur Hydromorphone (GC/MS) Urine Propoxyphene U Propoxyphene/M GC/MS Barbiturate Screen Ur Barbiturates Screen Urine Barbiturates Phencyclidine Screen Ur Phencyclidine (PCP) Ur PCP Confirm (GC/MS) Amphetamines Amphetamines Grp GC/MS Ur Amphetamines Screen Urine Amphetamine Ur Amphetamines, Quant Methamphetamine Methamphetamine GC/MS MDMA (Ecstasy) Screen Urine Amobarbital Ur Amobarbital GC/MS Urine Pentobarbital U Pentobarbital GC/MS Urine Phenobarbital U Phenobarbital GC/MS Urine Secobarbital U Secobarbital GC/MS Urine Alprazolam U OH-Alprazolam GC/MS Benzodiazepines Screen U Benzodiazepines Scrn Urine Clonazepam U 7-Amino Clonazep GC/MS Ur Nordiazepam Ur Nordiazepam GC/MS Flurazepam Flurazepam Confirm Lorazepam Urine Lorazepam Ur Oxazepam U Oxazepam Confm GC/MS Urine Temazepam Ur Temazepam (GC/MS) Urine Triazolam Ur Triazolam (GC/MS) Meperidine (GC/MS) Ur Meperidine Cocaine Screen Cocaine & Metabolite Urine Cocaine Benzoylecgonine Cannabinoids Urine Cannabinoids U Marijuana (THC) Screen Urine Marijuana (THC) Drug Test Comment Alcohol, Quantitative < 3.0 Ethyl Alc Confirm HOSPITAL COURSE: Date of Admission:10/30/18 Date of Discharge: 10/31/18 PRE HOSPITAL COURSE: Patient is a 58 year old female with a past medical history of seizure disorder , chiari malformation type 1, CHF, COPD and CVA with left sided weakness. She comes to the ED via EMS after having seizure activity at home. In route to the hospital, she was given versed 5mg which stopped her seizure activity. Patient reports two seizures at home and has had a few seizures in the last few months. She denies any falls or trauma, denies any recent illnesses. She states that she sleeps for a prolonged time after each seizure and has difficulty speaking. She was given a loading dose of Keppra 1000mg in the ER after she was noted to have a seizure in the ED. She was seen and evaluated by neurologist during her hospitalization. She has an appointment on November 08 with her primary neurologist Dr. Valdez. She has remained seizure free since her admission. She will be sent home with close follow up with her primary neurologist. PROBLEM LIST Neuro: Seizures, breakthrough, resolved Loading dose of Keppra given on admission and continued on Keppra 1500mg BID Patient reports that she was on Keppra 1000mg BID at home. Head CT negative for acute process brain mri 06/06/18 reviewed, consistent with chiari malformation type 1 w/o mass Keppra levels ordered and pending Seizure precautions Neuro consulted and following. patient follows with Dr. Valdez, his answering service informed of admission. Brain MRI reviewed. Diabetes: resume home medications CHF: continue Lasix CVA: left sided weakness: continue Plavix. Thrombocytopenia: resolved. DISCHARGE RECOMMENDATIONS: Please call Dr. Valdez for results of your EEG as well as further testing. Continue taking your antiseizure medications without skipping doses. Minutes to complete discharge: 60 Discharge Summary Reason For Visit: TONIC SEIZURES, INTRACTABLE Current Active Problems Refractory tonic seizures (Acute) Condition: Improved - Instructions Diet, Activity, Other Instructions: Mrs Tolliver: You were admitted on 10/30/2018 for breakthrough seizures. You had an EEG done on 10/31/2018 and the results are pending read. The EEG results will not be available for a few days. Therefore, please check back with Dr. Valdez, your neurologist for the results of this test. Here are our discharge recommendations: Seizures: Your Head CT was negative for any acute process. Your Keppra dose IS CHANGED AND is now Keppra 1500mg TWICE per day. Take it at 8am and 8pm without skipping doses. Take the Topamax 100mg twice per day without skipping doses. Take at 8am and 8pm. continue all your home medications as ordered. Please follow up with Dr. Valdez on your next scheduled appointment or you can call his office for an earlier appointment. Thank you for allowing us to care for you. Referrals: Annie Jensen MD [Primary Care Provider] - Disposition: HOME - Home Medications Comprehensive Discharge Medication List: Ambulatory Orders Aspirin [ASA -] 81 mg PO DAILY 10/13/15 Carvedilol [Coreg] 12.5 mg PO DAILY 10/13/15 Clopidogrel Bisulfate [Plavix -] 75 mg PO DAILY 10/13/15 Gabapentin 100 mg PO BID 10/13/15 Rosuvastatin Calcium [Crestor] 40 mg PO DAILY 10/13/15 Topiramate [Trokendi Xr] 100 mg PO BID 10/13/15 metFORMIN HCL [Metformin HCl] 850 mg PO BID 10/13/15 Duloxetine HCl 30 mg PO BID 01/26/16 Furosemide [Lasix -] 20 mg PO DAILY 01/26/16 Meloxicam 7.5 mg PO DAILY PRN 01/26/16 Sennosides/Docusate Sodium [Doc-Q-Lax Tablet] 1 each PO BID 01/26/16 Gabapentin [Neurontin -] 300 mg PO BID #90 capsule 10/31/18 Topiramate [Topamax -] 100 mg PO BID tablet 10/31/18 levETIRAcetam [Keppra -] 1,500 mg PO BID #120 tablet 10/31/18 This patient is new to me today: No Emergency Visit: Yes ED Registration Date: 10/30/18 Care time: The patient presented to the Emergency Department on the above date and was hospitalized for further evaluation of their emergent condition. Critical Care patient: No - Discharge Referral Referred to [id number] No
[2018-10-31 19:34] VITALS: BP 118/70; PULSE 66; TEMP 98.8
[2018-10-31] MEDS ORDERED: ROSUVASTATIN CA 20 MG TABLET (FP) PO SCH (22:00)
== END 2018-10-31 18:13 | disposition home or self-care (01) | DRG 53 ==
LOC: JER 03:14 → JERBED 06:13 → UNDOADMIN 06:13 → J4W 21:08
PROVIDERS: ADMIT Internal Medicine; ATTEND Nurse Practitioner Family
PROC: 4A00X4Z Measurement of Central Nervous Electrical Activity, External Approach (ICD-10-PCS; principal; 2018-10-30)
DX: G40.409 Other generalized epilepsy and epileptic syndromes, not intractable, without status epilepticus (principal); G93.5 Compression of brain; I11.0 Hypertensive heart disease with heart failure; I50.9 Heart failure, unspecified; D69.6 Thrombocytopenia, unspecified; I69.354 Hemiplegia and hemiparesis following cerebral infarction affecting left non-dominant side; J44.9 Chronic obstructive pulmonary disease, unspecified; Z79.84 Long term (current) use of oral hypoglycemic drugs; E11.9 Type 2 diabetes mellitus without complications
CPT/HCPCS: 36415; 70450-TC; 70551-TC; 71045-TC-FY; 80048; 80053; 80061; 80177; 80307; 81003; 82140; 82550; 82962; 83036; 83605; 83721; 83735; 84484; 85025; 85610; 85730; 86850; 86900; 86901; 87040; 93005; 93010; 95816; 99285-25; J1644; J7030

== ENCOUNTER 2019-02-05 17:18 | Inpatient (IN) | payer OTHER | END 2019-02-08 18:06 | disposition home or self-care (01) | LOC: J4S 17:18 ==